=== PATIENT | female | born 1995 | race Caucasian/White ===

== ENCOUNTER 2017-01-20 18:54 | Emergency (ER) | payer MEDICAID ==
[~2017-01-20] VITALS: Ht 149.9 cm; Wt 40.4 kg
[2017-01-20 19:07] VITALS: BP 100/62
--- NOTE | 2017-01-20 21:24 | NUR ---
PT TAKEN TO BED 7.
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
--- NOTE | 2017-01-20 21:28 | NUR ---
Patient being evaluated by Dr. Reardon at bedside.
[2017-01-20] MEDS ORDERED: NACL 0.9% 1,000 ML IV ONE (21:45)
--- NOTE | 2017-01-20 21:49 | NUR ---
Pt taken to CT via w/c.
--- NOTE | 2017-01-20 22:19 | NUR ---
PT. REFUSED IV FLUID. DR. ESTRELLA MADE AWARE.
[2017-01-20 22:34] LABS: BASOPHILS # (AUTO) 0.2 K/uL (0.00-0.22); BASOPHILS % (AUTO) 2.3 % (0.0-2.0); EOSINOPHILS # (AUTO) 0.1 K/uL (0-0.4); EOSINOPHILS % (AUTO) 0.7 % (0.0-4.0); HEMATOCRIT 42.1 % (36-48); LYMPHOCYTES # (AUTO) 1.6 K/uL (2.5-16.5); LYMPHOCYTES % (AUTO) 18.6 % (20.5-51.1); MEAN CORPUSCULAR HEMOGLOBIN 31 pg (27-31); MEAN CORPUSCULAR HGB CONC 33 g/dL (33-37); MEAN CORPUSCULAR VOLUME 93 fL (80-94); MONOCYTES # (AUTO) 1.3 K/uL (0.8-1.0); NEUTROPHILS # (AUTO) 5.2 K/uL (1.8-7.7); NEUTROPHILS % (AUTO) 62.4 % (42.2-75.2); PLATELET COUNT (AUTO) 251 K/uL (140-450); RED BLOOD CELL COUNT(AUTO) 4.55 MIL/uL (4.20-5.40); RED CELL DISTRIBUTION WIDTH 12.5 % (11.6-13.7); WHITE BLOOD COUNT (AUTO) 8.4 K/uL (4.5-11.0)
[2017-01-20 22:43] LABS: ALBUMIN 3.9 g/dL (3.4-5.0); ANION GAP 11.7 (8-16); CARBON DIOXIDE 29.8 mmol/L (21-32); CREATININE 0.7 mg/dL (0.6-1.3); POTASSIUM 3.5 mmol/L (3.5-5.1); TOTAL BILIRUBIN 0.3 mg/dL (0.0-1.0)
[2017-01-20 22:52] VITALS: BP 112/68
--- NOTE | 2017-01-20 22:52 | NUR ---
Patient discharged with v/s stable. Written and verbal after care instructions given and explained BY DR. ESTRELLA. Patient alert, oriented and verbalized understanding of instructions. Ambulatory with steady gait. All questions addressed prior to discharge. ID band removed. Patient advised to follow up with PMD. Rx of CIPRO given. Patient educated on indication of medication including possible reaction and side effects. Opportunity to ask questions provided and answered.
[2017-01-20 23:07] LABS: APPEARANCE,URINE CLEAR (CLEAR); BILIRUBIN,URINE NEGATIVE (NEGATIVE); BLOOD, URINE 1+ (NEGATIVE); COLOR,URINE YELLOW (YELLOW); LEUKOCYTE ESTERASE ,URINE NEGATIVE (NEGATIVE); NITRITE, URINE NEGATIVE (NEGATIVE); PH,URINE 6.5 (5.0-9.0); UGLUCOSE NEGATIVE (NEGATIVE)
[2017-01-20 23:20] LABS: RBC,URINE 3-10 (FEW) /HPF (0-5); WBC,URINE 0-5 (RARE) /HPF (0-5)
== END 2017-01-20 22:52 | disposition home or self-care (01) ==
LOC: MED 18:54
DX: A09 Infectious gastroenteritis and colitis, unspecified (principal)
CPT/HCPCS: 36415; 74176; 80053; 81001; 81025; 85025; 87086; 99285; J7030

== ENCOUNTER 2019-04-28 15:35 | Emergency (ER) | payer MEDICAID, OTHER ==
[~2019-04-28] VITALS: Ht 149.9 cm; Wt 47.2 kg
[2019-04-28 16:09] VITALS: BP 138/85
--- NOTE | 2019-04-28 16:13 | NUR ---
URINE CUP HANDED TO PT FOR SAMPLE
--- NOTE | 2019-04-28 18:16 | NUR ---
PATIENT LEFT WITHOUT BEING SEEN BY DR. REZA. NO FURTHER CARE PROVIDED FOR PATIENT.
--- NOTE | 2019-04-28 19:23 | NUR ---
PT AMBULATED TO BED #9
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
[2019-04-28] MEDS ORDERED: KETOROLAC 60 MG/2 ML VIAL IM ONE (20:30)
--- NOTE | 2019-04-28 20:45 | NUR ---
PT CRYING, REPORTS L EAR PAIN. EXPLAINED THAT PT IS AWAITING ER MD EVALUATION. DR DSOUZA MADE AWARE.
--- NOTE | 2019-04-28 20:51 | NUR ---
DR DSOUZA AT BEDSIDE FOR EVALUATION
[2019-04-28] MEDS ORDERED: HYDROcodone/APAP 5/325 MG 1 TAB TAB PO ONE (21:30)
--- NOTE | 2019-04-28 21:51 | NUR ---
Patient discharged with v/s stable. Written and verbal after care instructions given and explained. Patient alert, oriented and verbalized understanding of instructions. Ambulatory with steady gait. All questions addressed prior to discharge. ID band removed. Patient advised to follow up with PMD. Rx of NORCO AND PROMETHAZINE given. Patient educated on indication of medication including possible reaction and side effects. Opportunity to ask questions provided and answered.
[2019-04-28 21:52] VITALS: BP 132/90
--- NOTE | 2019-04-28 22:20 | NUR ---
RECEIVED CALL FROM PT, PT ASKING WHAT TO DO NEXT FOR HER L EAR PAIN. PT STATED THAT DR DSOUZA WAS NOT ABLE TO DEFINITELY VISUALIZE IF L EARDRUM WAS RUPTURED, PT WAS GIVEN RX NORCO FOR PAIN AND RX PROMETHAZINE. PER DR DSOUZA, PT WAS INSTRUCTED TO FOLLOW UP WITH PCP TOMORROW FIRST FOR POSSIBLE REFERRAL TO ENT MD, PT MADE AWARE. PT HUNG UP CALL.
== END 2019-04-28 21:52 | disposition home or self-care (01) ==
LOC: MED 15:35
DX: H92.02 Otalgia, left ear (principal); J06.9 Acute upper respiratory infection, unspecified
CPT/HCPCS: 71046; 87804; 96372; 99284; J1885

== ENCOUNTER 2020-01-07 14:34 | Emergency (ER) | payer OTHER ==
[~2020-01-07] VITALS: Ht 149.9 cm; Wt 51.3 kg
[2020-01-07 14:42] VITALS: BP 135/72
--- NOTE | 2020-01-07 14:45 | NUR ---
PT BIB SELF FOR C/O R EYE PAIN. STY NOTED UNDER R EYE LID. PT STATED APPEARED X 1 DAY AGO AFTER SLEEPING IN HER CONTACTS. PT DENIES EYE BLEEDING OR DRAINAGE. ADMITS TO SENSITIVITY TO LIGHT. PAIN 08/31. MEDHX: ARTHRITIS. NKA
--- NOTE | 2020-01-07 14:45 | NUR ---
PT AMBULATED TO BED 6 WITH STEADY GAIT.
[2020-01-07] MEDS ORDERED: FLUORESCEIN OPTH STRIP 1 MG OP ONE (16:15)
[2020-01-07] MEDS ORDERED: TETRACAINE 1% 2 ML AMP INJ ONE (16:15)
[2020-01-07] MEDS ORDERED: TETRACAINE HCL/PF 0.5% OPTH 4 ML BTL ONE (16:18)
--- NOTE | 2020-01-07 17:10 | NUR ---
Patient medically cleared for discharge. Discharge instructions given, verbalized understanding, questions answered. 2 prescriptions given and understood, directed to fill at any pharmacy [place] the [place]. Copy of instructions given, advised to follow up with PCP. Patient dressed in street clothes, ID band removed. Gait steady, ambulated out of the ED to private car.
[2020-01-07 17:42] VITALS: BP 135/72
== END 2020-01-07 17:10 | disposition home or self-care (01) ==
LOC: MED 14:34
DX: H10.9 Unspecified conjunctivitis (principal); R03.0 Elevated blood-pressure reading, without diagnosis of hypertension
CPT/HCPCS: 99283

== ENCOUNTER 2020-01-10 02:25 | Emergency (ER) | payer OTHER ==
[~2020-01-10] VITALS: Ht 149.9 cm; Wt 51.3 kg
[2020-01-10 02:28] VITALS: BP 149/88
--- NOTE | 2020-01-10 02:31 | NUR ---
PT AMBULATED TO BED 11 STEADY GAIT
--- NOTE | 2020-01-10 02:34 | NUR ---
PT 24 Y/O FEMALE BIB SELF FOR C/O "POSSIBLE ALLERGIC REACTION." PT STATES HER FRIEND GAVE HER A PILL TO "[employer]". 1 HOUR LATER PT HAD MULTIPLE EPISODES OF N/V. PT STATES, "IT FELT LIKE MY CHEST WAS BEATING FAST." PT STATES, " I FEEL ANXIOUS AND ITCHY." PT DOES NOT KNOW WHAT PILL SHE INGESTED. PT TEARFUL," I JUST FEEL NERVOUS. 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 VSS. BED LOCKED AND I LOWEST POSITION. MEDHX: NONE ALLERGIES: NKA
--- NOTE | 2020-01-10 02:35 | NUR ---
ERMD ASSESSED PT IN TRIAGE.
--- NOTE | 2020-01-10 03:25 | NUR ---
Patient discharged with v/s stable. Written and verbal after care instructions given and explained. Patient verbalized understanding. Ambulatory with steady gait. All questions addressed prior to discharge. Advised to follow up with PMD.
== END 2020-01-10 03:25 | disposition home or self-care (01) ==
LOC: MED 02:25
DX: R06.02 Shortness of breath (principal)
CPT/HCPCS: 99281

== ENCOUNTER 2020-07-01 21:20 | Inpatient (IN) | payer OTHER, SELFPAY ==
[~2020-07-01] VITALS: Ht 149.9 cm; Wt 49.9 kg
[2020-07-01] MEDS ORDERED: PNV91TAB8 PO (21:53)
[2020-07-01] MEDS ORDERED: oxyCODONE/APAP 5/325 MG 1 TAB TAB PO PRN (21:55)
[2020-07-01 21:56] VITALS: BP 115/62
[2020-07-01] MEDS: LACTATED RINGERS 1,000 ML IV SCH (23:04)
[2020-07-02] MEDS: LACTATED RINGERS 1,000 ML IV SCH ×2 (03:08→17:56)
[2020-07-02] MEDS: BETAMETH ACET/BETAMETH NA PH 30 MG/5 ML VIAL IM SCH (07:27)
--- NOTE | 2020-07-02 08:35 | NUR ---
PATIENT HAS BEEN SCREENED AND CATEGORIZED LOW NUTRITION RISK. PATIENT WILL BE SEEN WITHIN 7 DAYS OF ADMISSION. 07/08/[address]
[2020-07-02] MEDS: oxyCODONE/APAP 5/325 MG 1 TAB TAB PO PRN ×2 (12:05→19:49)
[2020-07-03] MEDS: LACTATED RINGERS 1,000 ML IV SCH ×2 (01:56→07:20)
[2020-07-03] MEDS: oxyCODONE/APAP 5/325 MG 1 TAB TAB PO PRN ×3 (02:01→14:25)
[2020-07-03] MEDS: BETAMETH ACET/BETAMETH NA PH 30 MG/5 ML VIAL IM SCH (07:22)
[2020-07-03] MEDS ORDERED: metroNIDAZOLE 500 MG TAB PO SCH (21:00)
== END 2020-07-03 16:09 | disposition home or self-care (01) | DRG 566 ==
LOC: MLD 21:20 → MFCC 22:46 → OBSVTOIN 07-02 09:44
PROVIDERS: ADMIT Obstetrics & Gynecology; ATTEND Obstetrics & Gynecology
DX: O22.43 Hemorrhoids in pregnancy, third trimester (principal); O99.891 Other specified diseases and conditions complicating pregnancy; Z3A.30 30 weeks gestation of pregnancy; Z87.440 Personal history of urinary (tract) infections; F32.9 Major depressive disorder, single episode, unspecified; F41.9 Anxiety disorder, unspecified; M19.90 Unspecified osteoarthritis, unspecified site; Z20.822 Contact with and (suspected) exposure to COVID-19; O62.9 Abnormality of forces of labor, unspecified
CPT/HCPCS: G0378 ×12; 36415; 76817; J0702; J7120

== ENCOUNTER 2022-02-07 17:15 | Emergency (ER) | payer OTHER ==
[~2022-02-07] VITALS: Ht 149.9 cm; Wt 45.4 kg
[~2022-02-07 17:15] MED LIST: PNV91TAB8 PO
[2022-02-07 17:21] VITALS: BP 129/68
--- NOTE | 2022-02-07 17:28 | NUR ---
59 y/o female biba from home, c/o respiratory distress, auditory rales, 89% ra at home with chronic bl leg pain. nebilzer tx given en route, pt now saturation at 97% nc 2L. a&ox4, ambulates with steady gait at this time. admits to smoking a cigarette prior to arrival. lung sound rales in bl lower lobes. ermd made aware. pmh: copd, dm2, chf allergy: penicillin, aspirin med: denies
--- NOTE | 2022-02-07 20:04 | NUR ---
PATIENT LEFT WITHOUT BEING SEEN BY BRIAN LY. NO FURTHER CARE PROVIDED FOR PATIENT.
== END 2022-02-07 20:04 | disposition left against medical advice (07) ==
LOC: MED 17:15
DX: R07.0 Pain in throat (principal); Z53.21 Procedure and treatment not carried out due to patient leaving prior to being seen by health care provider